=== PATIENT | female | born 1990 | race Caucasian/White ===

== ENCOUNTER 2025-05-08 23:23 | Emergency (ER) | payer SELFPAY ==
[~2025-05-08] VITALS: Ht 167.6 cm; Wt 65.0 kg
[2025-05-08 23:29] VITALS: O2SAT 98
[2025-05-09] VITALS: TEMP 37.2
[2025-05-09] MEDS: SODIUM CHLORIDE 0.9% 1,000 ML IV ONE (00:10)
[2025-05-09 00:11] LABS: BASOPHILS % 0.6 % (0.0-2.0); EOSINOPHILS % 0.6 % (0.0-5.0); HEMATOCRIT. 32.6 % (36.0-48.0); HEMOGLOBIN. 10.6 g/dL (12.0-16.0); LYMPHOCYTES % 19.1 % (20.0-50.0); MEAN PLATELET VOLUME 7.8 fl (7.4-10.4); MONOCYTES % 7.8 % (2.0-8.0); NEUTROPHILS % 71.9 % (40.0-76.0); PLATELET 253 x1000/uL (130-400); RED BLOOD CELL COUNT 4.08 mill/uL (4.2-5.4); RED CELL DISTRIBUTION WIDTH 13.9 % (11.6-14.6)
[2025-05-09 00:27] LABS: CREATININE 0.9 mg/dL (0.6-1.0); UREA NITROGEN BLOOD 14 mg/dL (9-23)
[2025-05-09 01:02] LABS: HCG SCREEN NEGATIVE
[2025-05-09 01:50] VITALS: BP 96/52; PULSE 90; RESP 16; O2SAT 99
== END 2025-05-09 02:02 | disposition home or self-care (01) ==
LOC: ER 23:43
DX: R55 Syncope and collapse (principal)
CPT/HCPCS: 80048; 80320; 84703; 85025; 36415; 99283; 96360; J7030; G0480